=== PATIENT | female | born 1980 | race Native Hawaiian/Other Pacific Islander ===

== ENCOUNTER 2018-02-06 10:12 | Emergency (ER) | payer SELFPAY ==
[2018-02-06 10:23] VITALS: BP 118/76
[2018-02-06] MEDS ORDERED: NACL 0.9% 1000 ML 1,000 ML IV ONE ×2 (10:40)
--- NOTE | 2018-02-06 10:48 | Emergency Department Report ---
ED General Adult HPI - General Chief complaint: Headache Stated complaint: HEADACHE/DIZZY/STOMACH PAIN Time Seen by Provider: 02/06/18 10:30 Source: patient, bending machine operator Mode of arrival: Ambulatory Limitations: Language Barrier - History of Present Illness Initial comments: Patient is a 37-year-old female who is presenting with dizziness patient. Patient states symptoms are worse when she stands she feels somewhat lightheaded. Patient 3 days ago started having some vomiting with diarrhea. Nausea vomiting ended 2 days ago and the diarrhea ended yesterday. Patient is still dizzy however she's had decreased appetite. Patient's states she ate some food 3 days ago that may have caused the symptoms. He was chills cough cold congestion at this time. Patient denies any abdominal pain. - Related Data Allergies Allergy/AdvReac Type Severity Reaction Status Date / Time No Known Allergies Allergy Verified 02/06/18 10:19 ED Review of Systems ROS: Stated complaint: HEADACHE/DIZZY/STOMACH PAIN Other details as noted in HPI Comment: All other systems reviewed and negative ED Past Medical Hx - Past Medical History Previous Medical History?: No - Surgical History Past Surgical History?: Yes Additional Surgical History: tubal ligation. x2. wisdom tooth removal. hernia repair - Social History Smoking Status: Never Smoker Substance Use Type: None ED Physical Exam - General Limitations: Language Barrier General appearance: alert, in no apparent distress - Head Head exam: Present: atraumatic, normocephalic - Eye Eye exam: Present: normal appearance - ENT ENT exam: Present: mucous membranes moist - Neck Neck exam: Present: normal inspection - Respiratory Respiratory exam: Present: normal lung sounds bilaterally. Absent: respiratory distress, wheezes, rales, rhonchi - Cardiovascular Cardiovascular Exam: Present: regular rate, normal rhythm. Absent: systolic murmur, diastolic murmur, rubs, gallop - GI/Abdominal GI/Abdominal exam: Present: soft, normal bowel sounds. Absent: distended, tenderness, guarding, rebound - Extremities Exam Extremities exam: Present: normal inspection - Back Exam Back exam: Present: normal inspection - Neurological Exam Neurological exam: Present: alert, oriented X3 - Psychiatric Psychiatric exam: Present: normal affect, normal mood - Skin Skin exam: Present: warm, dry, intact, normal color. Absent: rash ED Course Vital Signs 02/06/18 10:19 Temperature 97.6 F Pulse Rate 70 Respiratory 18 Rate Blood Pressure 118/76 O2 Sat by Pulse 98 Oximetry ED Medical Decision Making - Medical Decision Making Patient to be given normal saline for a presumed dehydration from gastroenteritis and will be discharged home afterwards. Critical care attestation.: If time is entered above; I have spent that time in minutes in the direct care of this critically ill patient, excluding procedure time. ED Disposition Clinical Impression: Dehydration Disposition: DC-01 TO HOME OR SELFCARE Is pt being admited?: No Does the pt Need Aspirin: No Condition: Stable Instructions: Dehydration (ED) Time of Disposition: 10:47 Print Language: BAHAM[place]
== END 2018-02-06 12:39 | disposition home or self-care (01) ==
LOC: ED 10:12
DX: E86.0 Dehydration (principal); Z98.51 Tubal ligation status
CPT/HCPCS: 96360; 96361; 99283; J7030